=== PATIENT | male | born 1945 | race Caucasian/White ===

== ENCOUNTER 2016-04-24 14:11 | Inpatient (IN) | payer OTHER ==
[2016-04-24] VITALS (14 sets, daily range): BP systolic 108–167; BP diastolic 59–89
[~2016-04-24] VITALS: Ht 170.2 cm; Wt 89.8 kg
--- NOTE | ~2016-04-24 | D ---
[facility] [place] [address] [address] DISCHARGE SUMMARY Name: BARBIE FORREST Room #: 209-P [facility] IN M.R.#: [id number] Admission: 04/24/16 Attend Phys: Darren Mar MD Discharge: 04/27/16 Date of : 47 Report #: [id number] THIS REPORT FOR: //name// CC: Darren Kinney Paige DATE OF SERVICE: 04/27/2016 FINAL DIAGNOSES: 1. Left pneumothorax. 2. Multiple left rib fractures. 3. Accidental fall. 4. Closed head injury. 5. Closed fracture T7 spinous process. 6. Chronic hypocalcemia. 7. Hypertension. HOSPITAL COURSE: The patient was admitted through the Emergency Room after sustaining a fall from the ladder accidentally at home. He had multiple injuries including the left pneumothorax related to multiple left rib fractures. He was also found to have a T7 spinous process vertebral fracture with no involvement of the spinal cord or canal. There was some bruising over his head consistent with hematoma and closed head injury. The CT of the brain was unremarkable. He was taken to IR and a chest tube was placed. Please see that report. He was watched in ICU overnight. He had no neurologic complications during his stay. The pulmonary service both Dr. Palmer and Dr. Godfrey managed the chest tube and pneumothorax. By the second hospital day, his chest x-ray was improved and the tube had been removed for 24 hours. He had no other interval complication. He resumed his home medications including high doses of calcium replacement due to previous history of thyroidectomy and chronic hypocalcemia. He had no other interval complications. Again neurologically, he was stable stay. DISPOSITION: He will be discharged to home with diet and activity as tolerated, to resume all his home medications plus hydrocodone 10 mg q. 4 hours p.r.n. pain. Follow up with Dr. Ledesma in 1-2 weeks. <ELECTRONICALLY SIGNED> By: Darren Mar MD 04/30/16 0751 [id number] 1118 Darren Mar MD /nt
--- NOTE | ~2016-04-24 | HC ---
[facility] [place] [address] CONSULTATION Name: BARBIE FORREST Room #: 209-P [facility] IN M.R.#: [id number] Admission: 04/24/16 Attend Phys: Darren Mar MD Discharge: 04/27/16 Date of : 47 Report #: [id number] THIS REPORT FOR: //name// CC: Darren Kinney Paige DATE OF SERVICE: 04/25/2016 We were asked to see the patient by Dr. Palmer. HISTORY OF PRESENT ILLNESS: The patient is a 70-year-old who sustained blunt chest trauma when he fell from the ladder. The patient was admitted after the fall on 04/24/2016. The patient claims that he placed the ladder on leafs ladder slipped out from under him and he fell approximately 7 feet on to the deck of his house and landed on his left shoulder. Also, reported right knee popped and left arm sustained injury as well. The patient claims he hit the left side of his head, but there is no loss of consciousness. We note that the patient developed a pneumothorax and has had a chest catheter placed, and for this reason, we were consulted. PAST MEDICAL HISTORY: Significant for hypertension, hyperlipidemia, thyroidectomy in 1976, hypothyroid, hypoparathyroidism, syncope with a positive to tilt table test in June 2009, nonischemic cardiomyopathy with an ejection fraction in the 40-45% range, hypocalcemia, hypomagnesemia, and hyponatremia. MEDICATIONS: Include midodrine, magnesium, levothyroxine, pindolol, simvastatin, multiple vitamins, and metoprolol. ALLERGIES: SULFA. SOCIAL HISTORY: Nonsmoker. FAMILY HISTORY: Not contributory. REVIEW OF SYSTEMS: CONSTITUTIONAL: No fever or chills. EYES: Wears glasses. No visual change. No eye pain. HEENT: No hearing problems, ear drainage, ear pain, neck pain, neck stiffness. RESPIRATORY: No cough, shortness of breath, sputum. CARDIOVASCULAR: No chest pain. No palpitations. GASTROINTESTINAL: No nausea, vomiting, diarrhea. GENITOURINARY: No burning, frequency, dysuria. MUSCULOSKELETAL: Admits to right knee pain and left arm pain since the fall. SKIN: No rash or infection. NEUROLOGIC: No motor or sensory dysfunction. No loss of consciousness. [address] [address] CONSULTATION Name: BARBIE FORREST Room #: 209-P [facility] IN M.R.#: [id number] Admission: 04/24/16 Attend Phys: Darren Mar MD Discharge: 04/27/16 Date of : 47 Report #: [id number] PHYSICAL EXAMINATION: GENERAL: The patient is lying in bed, seems comfortable. VITAL SIGNS: Temperature 37, pulse rate 63, respiratory rate 17, blood pressure 142/72, pulse ox 95. HEENT: No scleral icterus. No arcus. NECK: No mass. Grade I bruits bilaterally. HEART: Rhythm is regular. I hear no murmur. ABDOMEN: Soft. No mass. No tenderness. SKIN: No rash or infection. NEUROLOGIC: No motor or sensory dysfunction. Pulses: 2+ dorsalis pedis and posterior tibial pulses and popliteal pulses. Oriented and appropriate. MUSCULOSKELETAL: Some mild swelling with effusion, right knee. No ecchymosis. No other bone or joint dyssymmetry or deformity. PSYCHIATRIC: Mood is not elevated or depressed and shows insight into problem. IMPRESSION: The patient has chest tube catheter in place for pneumothorax, no air leak is seen. I suspect that the tube will be able to be removed safely over the weekend. Thank you for the consult. <ELECTRONICALLY SIGNED> By: Jono Tomlinson MD 04/28/16 0937 1622 0240 Jono Tomlinson MD /nt
--- NOTE | ~2016-04-24 | HC ---
[facility] [place] [address] CONSULTATION Name: BARBIE FORREST Room #: 209-P [facility] IN M.R.#: [id number] Admission: 04/24/16 Attend Phys: Darren Mar MD Discharge: 04/27/16 Date of : 47 Report #: [id number] THIS REPORT FOR: //name// CC: Darren Gibson DATE OF SERVICE: 04/24/2016 REFERRAL PHYSICIANS: Darren Mar M.D. and Gregoria Gibson M.D. REASON FOR REFERRAL: Pneumothorax. HISTORY OF PRESENT ILLNESS: The patient is a 70-year-old white male who presents to the Emergency Room following a fall. He was found to have fractured ribs on the left with a left-sided pneumothorax. A pulmonary consultation was requested. The patient was home, walking on his roof. He slipped on his ladder and landed on a wooden deck about 7-feet fall. When he was seen in the Emergency Room, a chest CT, abdomen and pelvis along with CT of the head was performed. This showed evidence of left-sided rib fractures along with moderate sized left pneumothorax. A chest tube was placed by interventional Radiology. Followup chest x-ray showed reexpansion of the left lung field. Otherwise, the patient complains of soreness, but denies any history of chronic lung disease. He denies any tobacco use. PAST MEDICAL HISTORY: As mentioned above including history of hypertension, dyslipidemia, hypothyroidism, status post thyroidectomy. He was diagnosed with pneumonia in 2012. PAST SURGICAL HISTORY: As mentioned above. ALLERGIES: SULFA, reactions not specified. HOME MEDICATIONS: Include metoprolol, midodrine, calcium supplements, Levoxyl, Zocor. FAMILY HISTORY: Noncontributory. SOCIAL HISTORY: Denies any tobacco or alcohol use, he is and lives at home. REVIEW OF SYSTEMS: As mentioned above, otherwise 10-point system review [facility] [address] [place] [address] CONSULTATION Name: BARBIE FORREST Room #: 209-P [facility] IN .R.#: [id number] Admission: 04/24/16 Attend Phys: Darren Mar MD Discharge: 04/27/16 Date of : 47 Report #: [id number]. PHYSICAL EXAMINATION: GENERAL: He is awake, alert, in mild distress due to pain. VITAL SIGNS: Temperature is 98.8 degrees Fahrenheit, pulse is 64, respiratory rate is 15, blood pressure is 126/65 mmHg, saturation 97% on supplemental oxygen. HEENT: Normocephalic, atraumatic. NECK: Supple, without lymphadenopathy or thyromegaly. CHEST: Good breath sounds bilaterally without any rales or wheezes. CARDIOVASCULAR: Normal S1, S2. There are no murmurs or gallops. There is no JVD. There is no carotid bruit. Pulses are 4+ bilaterally. ABDOMEN: Soft and nontender. No organomegaly or masses felt. EXTREMITIES: There is no edema, cyanosis or clubbing. LABORATORY DATA: CT neck revealed displaced fracture involving the transverse spine at T7 vertebra. This is not involving his spinal canal. No cervical fracture is noted. There is a left 2nd and 3rd rib fracture noted. CT of the chest also incidentally noted a 5.2 cm mass involving the right kidney. IMPRESSION: 1. Approximately 7-feet fall, sustaining a chest trauma with left-sided pneumothorax and rib fractures. 2. Hypertension. 3. Hypothyroidism. 4. Status post thyroidectomy. RECOMMENDATIONS: We will continue chest tube dissection. Once stable, chest tube will be placed waterseal. If stable, chest tube will be discontinued. We will consult Thoracic Surgery to follow. The patient may need further workup regarding his renal mass as mentioned above. Thank you for this consultation. <ELECTRONICALLY SIGNED> By: Dorian Palmer MD 05/09/16 1634 1429 0052 Dorian Palmer MD /nt
--- NOTE | ~2016-04-24 | H ---
[facility] [place] [address] HISTORY AND PHYSICAL Name: BARBIE FORREST Room #: 209-P ADM IN M.R.#: [id number] Admission: 04/24/16 Attend Phys: Darren Mar MD Discharge: Date of : 47 Report #: [id number] THIS REPORT FOR: //name// CC: Darren Gibson DATE OF SERVICE: 04/24/2016 ATTENDING PHYSICIAN: Gregoria Gibson M.D. CHIEF COMPLAINT: Back and chest pain. HISTORY OF PRESENT ILLNESS: The patient is a 70-year-old gentleman who was admitted to the Emergency Room after sustaining a fall with injury at home. He apparently was working on his roof and slipped off a ladder and landed on a wooden deck about a 7 foot fall. He landed on his left side and shoulder and reports hitting the left side of his head. He had pain in the left shoulder and chest and felt something and a little short of breath. He was brought to the Emergency Room and was diagnosed with several injuries including a rib fracture, a left-sided pneumothorax and some spinous process fractures. PAST MEDICAL HISTORY: Haemophilus pneumonia 2012, hypertension, dyslipidemia, hypothyroidism, hypocalcemia due to remote history of thyroid resection. PAST SURGICAL HISTORY: He has had a thyroidectomy. FAMILY HISTORY: Noncontributory. SOCIAL HISTORY: He is , lives at home. No chronic alcohol or tobacco use. ALLERGIES: SULFA. MEDICATIONS: Zocor 40 mg, Levoxyl 88 mcg, vitamin D 50,000 units twice a month, calcium acetate mg t.i.d., Midodrine 5 mg t.i.d., vitamin D daily, Tums 3000 mg twice a day, magnesium 400 mg twice a day, metoprolol 50 mg twice a day. REVIEW OF SYSTEMS: He complains of chest pain, denies headache, shortness of breath, abdominal pain, nausea, vomiting, diarrhea, constipation, dysuria, syncope. OBJECTIVE: VITAL SIGNS: Temperature 37.3, pulse 60, respirations 13, blood pressure 108/61, O2 sat 99% on room air. GENERAL: He was awake and alert in no distress. HEENT: Has some bruising in the left forehead. [address] [address] HISTORY AND PHYSICAL Name: BARBIE FORREST Room #: 209-P ADM IN M.R.#: [id number] Admission: 04/24/16 Attend Phys: Darren Mar MD Discharge: Date of : 47 Report #: [id number] LUNGS: Clear to auscultation bilateral. HEART: Regular without murmur. ABDOMEN: Soft, normoactive bowel sounds. EXTREMITIES: No edema. NEUROLOGIC: He is alert and oriented x 4. LABORATORY DATA: Hemoglobin is approximately 12, sodium is 130, and creatinine is 1.7. CT chest revealed a moderate-sized left pneumothorax, a second and third nondisplaced left rib fractures. Of note, there is also a 5.2 cm mass in the right kidney, slightly larger from 2010. IMAGING: CT neck revealed a nondisplaced fracture of the transverse process of T7. It is not involving the spinal cord or spinal canal. There were no other cervical fractures noted. Plain x-rays of the knee and ankle were negative for fracture. CT head revealed no intracranial hemorrhage. ASSESSMENT: 1. Left pneumothorax. 2. Left second and third rib fractures. 3. Accidental fall. 4. Hyponatremia. 5. Acute kidney injury due to the fall. 6. Right renal mass. PLAN: He has been admitted to ICU, Interventional Radiology has placed a small caliber left-sided chest tube. Dr. Palmer from pulmonary service is managing this. Dr. Tomlinson has been consulted as well. He will continue his home medications. Follow up lab data will be obtained as well. SCDs for now as he is having some bloody output from the chest tube and injury with risk of bleeding for Lovenox at this time. <ELECTRONICALLY SIGNED> By: Darren Mar MD 04/26/16 0817 1040 1114 Darren Mar MD /nt
[~2016-04-24 14:11] MED LIST: ADULT LOW DOSE81 MG PO; ALTACE PO; AMBIEN 5 MG TABL5 M1 PO; ANTACID300 MG PO; ATIVAN0.5 MG PO; CALCITRIOL0.25 MCG PO; CALTRATE-600 W1 EACH PO; COREG PO; COUMADIN 2 MG TA2 M1 PO; FAMOTIDINE20 MG PO; LEVOTHROID100 MC1 PO; LIPITOR10 MG PO; LISINOPRIL5 MG PO; LOPRESSOR; MAG-OX 400 TAB400 M1 PO; MAGNES PO; MIDODRINE HCL 55 M1 PO; MULTIVITAMINS PO; PINDOLOL PO; SIMVASTATIN40 MG PO; SYNTHROID 0.10.1 M1 PO; SYNTHROID88 MCG PO; VITAMIN D 5050000 I1 PO; ZOCOR40 MG PO
[2016-04-24] MEDS ORDERED: LOPRESSOR50 PO (14:27)
[2016-04-24] MEDS ORDERED: MIDODRINE HCL2.5 M1 PO (14:27)
[2016-04-24] MEDS ORDERED: SIMVASTATIN40 MG PO (14:28)
[2016-04-24 16:06] LABS: HEMATOCRIT 38.9 % (42.0-52.0); HEMOGLOBIN 13.6 gm/dL (14.0-18.0); MCH 31.3 pg (26.0-34.0); MCHC 34.9 % (28.0-37.0); MCV 89.6 fL (80.0-100.0); RBC 4.34 mil/uL (4.50-6.00); RDW 12.8 % (10.5-14.5); WBC 16.2 thou/uL (4.0-11.0)
[2016-04-24 16:14] LABS: CALCIUM 8.6 mg/dL (8.5-10.1); CREATININE 1.7 mg/dL (0.6-1.3)
[2016-04-24 16:18] LABS: PROTIME 10.5 Seconds (9.3-11.4)
[2016-04-25] VITALS (16 sets, daily range): BP systolic 104–152; BP diastolic 51–78
[2016-04-25 05:07] LABS: HEMATOCRIT 35.1 % (42.0-52.0); HEMOGLOBIN 11.9 gm/dL (14.0-18.0); MCH 31.2 pg (26.0-34.0); MCV 91.9 fL (80.0-100.0); RBC 3.82 mil/uL (4.50-6.00); WBC 9.9 thou/uL (4.0-11.0)
[2016-04-25 05:16] LABS: CALCIUM 7.6 mg/dL (8.5-10.1); CREATININE 1.7 mg/dL (0.6-1.3); POTASSIUM 4.1 mmol/L (3.5-5.1)
[2016-04-26 03:54] VITALS: BP 152/84
[2016-04-26 04:28] LABS: HEMATOCRIT 32.6 % (42.0-52.0); HEMOGLOBIN 11.5 gm/dL (14.0-18.0); MCH 31.7 pg (26.0-34.0); MCHC 35.2 % (28.0-37.0); RBC 3.62 mil/uL (4.50-6.00); RDW 12.9 % (10.5-14.5); WBC 8.6 thou/uL (4.0-11.0)
[2016-04-26 04:52] LABS: CALCIUM 7.1 mg/dL (8.5-10.1); CREATININE 1.3 mg/dL (0.6-1.3); POTASSIUM 3.7 mmol/L (3.5-5.1)
[2016-04-26 08:05] VITALS: BP 165/86
[2016-04-26 12:13] VITALS: BP 168/88
[2016-04-26 15:11] VITALS: BP 168/81
[2016-04-26 20:00] VITALS: BP 166/98
[2016-04-27 04:00] LABS: HEMATOCRIT 35.9 % (42.0-52.0); HEMOGLOBIN 12.1 gm/dL (14.0-18.0); MCH 30.9 pg (26.0-34.0); MCHC 33.7 % (28.0-37.0); MCV 91.7 fL (80.0-100.0); RBC 3.92 mil/uL (4.50-6.00); RDW 12.9 % (10.5-14.5); WBC 10.1 thou/uL (4.0-11.0)
[2016-04-27 05:28] LABS: CALCIUM 7.7 mg/dL (8.5-10.1); CREATININE 1.2 mg/dL (0.6-1.3); POTASSIUM 3.9 mmol/L (3.5-5.1)
[2016-04-27 05:31] VITALS: BP 175/91
[2016-04-27] MEDS ORDERED: MAGNESIUM OXID400 MG PO (08:09)
[2016-04-27] MEDS ORDERED: LORTAB 10-3251 EACH PO (08:09)
[2016-04-27] MEDS ORDERED: CALCIUM ACETAT667 MG PO (08:09)
[2016-04-27] MEDS ORDERED: TUMS CHEWA500 MG/11 PO (08:09)
[2016-04-27 08:31] VITALS: BP 142/76
[2016-04-27 11:20] VITALS: BP 142/76
[2016-04-27 11:53] VITALS: BP 171/83
== END 2016-04-27 12:31 | disposition home or self-care (01) | DRG 199 ==
LOC: ER 14:11 → ICU 16:02 → EROBS 16:02 → 2N 16:02 → ICU 16:48 → 2N 04-25 13:08
PROVIDERS: Emergency Medicine; Internal Medicine Geriatric Medicine
PROC: 0W9B30Z Drainage of Left Pleural Cavity with Drainage Device, Percutaneous Approach (ICD-10-PCS; principal; 2016-04-24)
DX: S27.0XXA Traumatic pneumothorax, initial encounter (principal); N17.0 Acute kidney failure with tubular necrosis; S22.49XA Multiple fractures of ribs, unspecified side, initial encounter for closed fracture; E87.1 Hypo-osmolality and hyponatremia; S22.069A Unspecified fracture of T7-T8 vertebra, initial encounter for closed fracture; I10 Essential (primary) hypertension; E78.5 Hyperlipidemia, unspecified; E03.9 Hypothyroidism, unspecified; S09.90XA Unspecified injury of head, initial encounter; E20.9 Hypoparathyroidism, unspecified; W17.89XA Other fall from one level to another, initial encounter; Y93.89 Activity, other specified; Y92.89 Other specified places as the place of occurrence of the external cause; Z79.899 Other long term (current) drug therapy; Y99.8 Other external cause status; Z88.2 Allergy status to sulfonamides
CPT/HCPCS: 10078; 10081